=== PATIENT | male | born 1985 | race American Indian/Alaskan Native ===

== ENCOUNTER 2018-01-30 13:23 | Emergency (ER) | payer SELFPAY ==
[2018-01-30] MEDS ORDERED: PEPCID IV ONE (13:44)
[2018-01-30] MEDS ORDERED: BENADRYL IV ONE ×2 (13:44→20:55)
[2018-01-30] MEDS ORDERED: SOLU-Medrol ONE (13:50)
[2018-01-30] MEDS ORDERED: SOLU-Medrol IV ONE (16:17)
--- NOTE | 2018-01-30 18:27 | Emergency Department Report ---
ED General Adult HPI - General Chief complaint: Allergic Reaction Stated complaint: ALLERGIC REACTION Time Seen by Provider: 01/30/18 18:26 Source: patient, RN notes reviewed Mode of arrival: Ambulatory Limitations: No Limitations - History of Present Illness Initial comments: This is a 32-year-old male who is not known to this provider previously. He does not have a local primary care doctor and he denies chronic medical conditions. He presents to the ER with unprovoked nontraumatic swelling of the tongue. It is constant, does not radiate anywhere, does not appear to have exacerbating or relieving factors. He denies other complaints. He indicates no obvious inciting factors. patient was given Pepcid, Benadryl, Solu-Medrol which somewhat improved his symptoms, otherwise no changes. -: Sudden Location: mouth (tongue) Radiation: non-radiation Consistency: constant Improves with: medication Worsens with: none Associated Symptoms: denies other symptoms - Related Data Allergies Allergy/AdvReac Type Severity Reaction Status Date / Time No Known Allergies Allergy Unverified 01/30/18 13:40 ED Review of Systems ROS: Stated complaint: ALLERGIC REACTION Other details as noted in HPI Comment: All other systems reviewed and negative ED Past Medical Hx - Past Medical History Previous Medical History?: No - Surgical History Past Surgical History?: No - Social History Smoking Status: Current Every Day Smoker Substance Use Type: Alcohol ED Physical Exam - General Limitations: No Limitations General appearance: alert, in no apparent distress - Head Head exam: Present: atraumatic, normocephalic - Eye Eye exam: Present: normal appearance, EOMI - ENT ENT exam: Present: normal orophraynx, mucous membranes moist, normal external ear exam, other (patient has a large and swollen tongue. However he is speaking in full sentences, protecting his airway, and there is no stridor or dysphonia). Absent: normal exam - Neck Neck exam: Present: normal inspection, full ROM. Absent: tenderness - Respiratory Respiratory exam: Present: normal lung sounds bilaterally. Absent: respiratory distress - Cardiovascular Cardiovascular Exam: Present: regular rate, normal rhythm, normal heart sounds. Absent: bradycardia, tachycardia, irregular rhythm, systolic murmur, diastolic murmur, rubs, gallop - GI/Abdominal GI/Abdominal exam: Present: soft. Absent: distended, tenderness, guarding, rebound, rigid, pulsatile mass - Rectal Rectal exam: Present: deferred - Extremities Exam Extremities exam: Present: normal inspection, full ROM, other (2+ pulses noted in the bilateral upper, lower extremities. Compartments soft. No long bony tenderness. The pelvis is stable.). Absent: calf tenderness - Back Exam Back exam: Present: normal inspection, full ROM. Absent: tenderness, CVA tenderness (R), muscle spasm, paraspinal tenderness, vertebral tenderness - Neurological Exam Neurological exam: Present: alert, oriented X3, CN II-XII intact, normal gait, other (Extraocular movements intact. Tongue midline. No facial droop. Facial sensation intact to light touch in the V1, V2, V3 distribution bilaterally. 5 and 5 strength in 4 extremities.. Sensation is intact to light touch in 4 extremities.). Absent: motor sensory deficit - Psychiatric Psychiatric exam: Present: normal affect, normal mood - Skin Skin exam: Present: warm, dry, intact, normal color. 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 He is afebrile with reassuring vital signs, endorses no obvious exacerbating or inciting factors. He is treated empirically. He has been observed in the ER for a few hours. He is not clinically decompensated and his swelling of the tongue is improved when compared to my initial, prior evaluation.. However, he still has impressive swelling of the tongue. He will be admitted to the hospital for airway observation. The Hospital physician, Dr. Huynh accepted the patient to his service. Critical care attestation.: If time is entered above; I have spent that time in minutes in the direct care of this critically ill patient, excluding procedure time. ED Disposition Clinical Impression: Idiopathic angioedema Qualifiers: Encounter type: initial encounter Qualified Code(s): T78.3XXA - Angioneurotic edema, initial encounter Disposition: OP ADMIT IP TO THIS HOSP Is pt being admited?: Yes Condition: Good Referrals: PRIMARY CARE,MD [Primary Care Provider] - 3-5 Days
--- NOTE | 2018-01-30 19:29 | Consultation ---
History of Present Illness - Reason for Consult Consult date: 01/30/18 allergic reac Requesting physician: ARACELY HUDSON - History of Present Illness 32 YO Male with Nicotine Dependence present to ED for evaluation of tongue swelling, Pt states that he awoke with symptoms and presents to ED for evaluation. Pt seen and evaluated and treated with IV steroid therapy with improvement in symptoms. Pt medically optimized, and back to usual state of health. Pt denies drooling or shortness of breath. Pt tolerating solid and liquid diet without difficulty. Pt discharged home and instructed to f/u pcp 3- 5 days as well as Assistant Center Manager prn for allergy testing. Past History Past Medical History: No medical history, other (reviewed) Past Surgical History: No surgical history, Other (reviewed) Social history: , lives with family, smoking Family history: no significant family history (reviewed) Medications and Allergies Allergies Allergy/AdvReac Type Severity Reaction Status Date / Time No Known Allergies Allergy Unverified 01/30/18 13:40 Home Medications Medication Instructions Recorded Confirmed Last Taken Type EPINEPHrine [Epipen 2-Christian] 0.3 mg IJ ONCE PRN #1 auto.injct 01/30/18 Unknown Rx Prednisone [predniSONE 10 mg 10 mg PO .TAPER #1 tab.ds.pk 01/30/18 Unknown Rx (6-Day Pack, 21 Tabs)] Review of Systems Constitutional: no weight loss, no weight gain, no fever, no chills Ears, nose, mouth and throat: swelling in mouth, no ear pain, no ear discharge, no tinnitis, no decreased hearing, no nose pain, no sinus pressure, no dental pain, no mouth pain, no dysphagia, no hoarseness, no sore throat Cardiovascular: no chest pain, no orthopnea, no palpitations, no rapid/ irregular heart beat, no edema, no syncope, no lightheadedness Respiratory: no cough, no cough with sputum, no excessive sputum, no hemoptysis , no shortness of breath Gastrointestinal: no abdominal pain, no nausea, no vomiting, no diarrhea, no constipation, no change in bowel habits, no hematemesis Genitourinary Male: no dysuria, no hematuria, no flank pain, no discharge, no urinary frequency, no urinary hesitancy, no nocturia Rectal: no pain, no incontinence, no bleeding, no itching, no hemorrhoids Musculoskeletal: no neck stiffness, no neck pain, no shooting arm pain, no arm numbness/tingling, no low back pain, no shooting leg pain, no leg numbness/ tingling Integumentary: no rash, no pruritis, no redness, no sores, no wounds, no jaundice, no boils Neurological: no head injury, no transient paralysis, no paralysis, no weakness , no parathesias, no numbness, no tingling, no seizures, no syncope Psychiatric: no anxiety, no memory loss, no change in sleep habits, no sleep disturbances, no insomnia, no hypersomnia, no change in appetite, no change in libido, no suicidal ideation Endocrine: no cold intolerance, no heat intolerance, no polyphagia, no excessive thirst, no polydipsia, no polyuria, no nocturia Hematologic/Lymphatic: no easy bruising, no easy bleeding, no lymphadenopathy, no lymphedema Allergic/Immunologic: no urticaria, no allergic rhinitis, no wheezing, no persistent infections, no anaphylaxis, no angioedema Exam - Constitutional Vitals: Temp Pulse Resp BP Pulse Ox 98.8 F 94 H 20 119/83 98 01/30/18 13:37 01/30/18 13:37 01/30/18 13:37 01/30/18 13:37 01/30/18 13:37 General appearance: Present: no acute distress, well-nourished - EENT Eyes: Present: PERRL ENT: hearing intact, clear oral mucosa, other (tongue swelling, ) - Neck Neck: Present: supple, normal ROM - Respiratory Respiratory effort: normal Respiratory: bilateral: CTA - Cardiovascular Heart Sounds: Present: S1 & S2. Absent: rub, click - Extremities Extremities: pulses symmetrical, No edema Peripheral Pulses: within normal limits - Abdominal General gastrointestinal: Present: soft, non-tender, non-distended, normal bowel sounds Male genitourinary: Present: normal - Integumentary Integumentary: Present: clear, warm, dry - Musculoskeletal Musculoskeletal: gait normal, strength equal bilaterally - Psychiatric Psychiatric: appropriate mood/affect, intact judgment & insight - Neurologic Neurologic: CNII-XII intact, moves all extremities Assessment and Plan - Patient Problems (1) Allergic reaction Current Visit: Yes Status: Acute Qualifiers: Encounter type: initial encounter Qualified Code(s): T78.40XA - Allergy, unspecified, initial encounter Plan to address problem: Pt medically optimized, discharge home with epi pen, steroid taper, f/u pcp 1wk , Allergy medicine for allergy testing PRN.
[2018-01-30 20:00] VITALS: BP 110/69
[2018-01-30 20:07] LABS: Hematocrit 45.9 % (35.5-45.6); Hemoglobin 15.8 gm/dl (11.8-15.2); Mean Corpuscular HGB Conc 35 % (32-34); Mean Corpuscular Hemoglobin 33 pg (28-32); Mean Corpuscular Volume 95 fl (84-94); Platelet Count 284 K/mm3 (140-440); Red Blood Count 4.85 M/mm3 (3.65-5.03); Red Cell Distribution Width 12.3 % (13.2-15.2)
[2018-01-30 20:17] LABS: INR 0.96 (0.87-1.13)
[2018-01-30 20:19] LABS: BUN/Creatinine Ratio 10; Blood Urea Nitrogen 10 mg/dL (9-20); Calcium 9.7 mg/dL (8.4-10.2); Hemolysis Index 3
== END 2018-01-30 21:25 | disposition admitted as inpatient to this hospital (09) ==
LOC: ED 13:23
DX: T78.3XXA Angioneurotic edema, initial encounter (principal); F17.200 Nicotine dependence, unspecified, uncomplicated; X58.XXXA Exposure to other specified factors, initial encounter
CPT/HCPCS: 36415; 80048; 85027; 85610; 96374; 96375; 99284; J1200; J2930

== ENCOUNTER 2018-02-13 14:39 | Inpatient (IN) | payer OTHER ==
[2018-02-13] MEDS ORDERED: NACL 0.9% 1000 ML 1,000 ML IV ONE (14:47)
[2018-02-13] MEDS ORDERED: PEPCID IV ONE ×2 (14:48→14:49)
[2018-02-13] MEDS ORDERED: SOLU-Medrol IV ONE (14:48)
[2018-02-13] MEDS ORDERED: BENADRYL IV ONE (14:48)
[2018-02-13] MEDS ORDERED: SOLU-Medrol ONE (14:49)
[2018-02-13] MEDS ORDERED: BENADRYL ONE (14:52)
--- NOTE | 2018-02-13 14:54 | Emergency Department Report ---
ED Allergic Reaction HPI - General Chief complaint: Allergic Reaction Stated complaint: ALLERGIC REACTION Time Seen by Provider: 02/13/18 14:46 Source: patient Mode of arrival: Ambulatory Limitations: No Limitations - History of Present Illness Initial Comments: Patient is 32 years old male with history of idiopathic angioedema. Patient presented to the ER with upper and lower lips swelling that is started this morning patient stated that he woke up with the symptoms he went to [facility] ER and did give him a shot and they discharged him home. Patient stated that his symptoms are getting worse. Patient denied any tongue swelling, difficulty breathing or difficulty swallowing. No skin rash or itching. Patient immediately placed on a cardiac nurse specialist, IV access obtained, patient given IV Solu-Medrol, IV Benadryl and IV Pepcid. Complaint: allergic reaction, facial swelling -: This morning Symptoms: lip swelling Severity: moderate Treatment Prior to Arrival: steroids - Related Data Previous Rx's Medication Instructions Recorded Last Taken Type EPINEPHrine [Epipen 2-Christian] 0.3 mg IJ ONCE PRN #1 auto.injct 01/30/18 Unknown Rx Prednisone [predniSONE 10 mg 10 mg PO .TAPER #1 tab.ds.pk 01/30/18 Unknown Rx (6-Day Pack, 21 Tabs)] Allergies Allergy/AdvReac Type Severity Reaction Status Date / Time No Known Allergies Allergy Verified 01/30/18 19:49 ED Review of Systems ROS: Stated complaint: ALLERGIC REACTION Other details as noted in HPI Comment: All other systems reviewed and negative Constitutional: denies: chills, fever ENT: other (lips swelling) Respiratory: denies: cough, orthopnea, shortness of breath, SOB with exertion, SOB at rest, wheezing Cardiovascular: denies: chest pain, palpitations, dyspnea on exertion Gastrointestinal: denies: abdominal pain, nausea, vomiting, diarrhea, constipation, hematemesis Genitourinary: denies: urgency, dysuria Skin: denies: lesions, change in color, change in hair/nails, pruritus Neurological: denies: headache, weakness, numbness, paresthesias, confusion ED Past Medical Hx - Past Medical History Previous Medical History?: No - Surgical History Past Surgical History?: No - Social History Smoking Status: Current Every Day Smoker Substance Use Type: Alcohol - Medications Home Medications: Home Medications Medication Instructions Recorded Confirmed Last Taken Type EPINEPHrine [Epipen 2-Christian] 0.3 mg IJ ONCE PRN #1 auto.injct 01/30/18 02/14/18 Unknown Rx Prednisone [predniSONE 10 mg 10 mg PO .TAPER #1 tab.ds.pk 01/30/18 02/14/18 Unknown Rx (6-Day Pack, 21 Tabs)] ED Physical Exam - General Limitations: No Limitations General appearance: alert, in no apparent distress, anxious - Head Head exam: Present: atraumatic, normocephalic, normal inspection - Eye Eye exam: Present: normal appearance, PERRL Pupils: Present: normal accommodation - ENT ENT exam: Present: other (significant upper and lower lips is swelling. Tongue is normal size with no swelling. No airway compromise at this point.) - Neck Neck exam: Present: normal inspection, full ROM. Absent: tenderness, meningismus, lymphadenopathy, thyromegaly - Respiratory Respiratory exam: Present: normal lung sounds bilaterally - Cardiovascular Cardiovascular Exam: Present: regular rate, normal rhythm, normal heart sounds - GI/Abdominal GI/Abdominal exam: Present: soft, normal bowel sounds. Absent: distended, tenderness, guarding, rebound, rigid - Extremities Exam Extremities exam: Present: normal inspection, full ROM, normal capillary refill. Absent: pedal edema, calf tenderness - Back Exam Back exam: Present: normal inspection - Neurological Exam Neurological exam: Present: alert, oriented X3, CN II-XII intact, normal gait, reflexes normal - Skin Skin exam: Present: warm, intact, normal color ED Course Vital Signs 02/13/18 02/13/18 02/13/18 14:45 16:02 17:48 Temperature 99.2 F Pulse Rate 96 H 80 Respiratory 18 18 17 Rate Blood Pressure 122/86 O2 Sat by Pulse 99 100 Oximetry 02/13/18 02/13/18 02/13/18 18:00 18:15 18:30 Temperature Pulse Rate 104 H 85 82 Respiratory 18 13 17 Rate Blood Pressure 102/65 126/54 120/61 O2 Sat by Pulse Oximetry 02/13/18 02/13/18 02/13/18 18:45 19:00 19:15 Temperature Pulse Rate 82 80 75 Respiratory 15 15 13 Rate Blood Pressure 115/62 106/57 116/71 O2 Sat by Pulse Oximetry - Reevaluation(s) Reevaluation #1: 02/13/18 15:49 Patient is alert, oriented 2 in no acute distress. Patient denied any difficulty breathing or difficulty swallowing. Patient still have a significantly swollen lips. ED Medical Decision Making - Lab Data Result diagrams: 02/13/18 16:10 02/13/18 16:10 - Medical Decision Making I discussed the patient with Dr. Hughes, he agreed to admit the patient to medical service. Critical Care Time: Yes Critical care time in (mins) excluding proc time.: 30 Critical care attestation.: If time is entered above; I have spent that time in minutes in the direct care of this critically ill patient, excluding procedure time. ED Disposition Clinical Impression: Idiopathic angioedema, Allergic reaction Disposition: OP ADMIT IP TO THIS HOSP Is pt being admited?: Yes Condition: Stable
[2018-02-13 16:50] LABS: Hematocrit 43.5 % (35.5-45.6); Mean Corpuscular HGB Conc 35 % (32-34); Mean Corpuscular Hemoglobin 33 pg (28-32); Mean Corpuscular Volume 95 fl (84-94); Platelet Count 307 K/mm3 (140-440); Red Blood Count 4.57 M/mm3 (3.65-5.03); Red Cell Distribution Width 12.2 % (13.2-15.2)
[2018-02-13 17:16] LABS: BUN/Creatinine Ratio 9; Blood Urea Nitrogen 7 mg/dL (9-20); Calcium 9.1 mg/dL (8.4-10.2); Hemolysis Index 13
[2018-02-13 17:49] LABS: Basophils % (Manual) 0 % (0.0-1.8); Eosinophils % (Manual) 0 % (0.0-4.3); RBC Morphology Normal; Total Cells Counted 100
[2018-02-14] MEDS ORDERED: TYLENOL PO PRN (01:07)
[2018-02-14] MEDS ORDERED: ZOFRAN IV PRN (01:07)
[2018-02-14] MEDS ORDERED: PERCOCET 5/325 PO PRN (01:07)
[2018-02-14] MEDS ORDERED: SODIUM CHLORIDE FLUSH SYRINGE 10 ML IV PRN (01:07)
[2018-02-14] MEDS ORDERED: MORPHINE IV PRN ×2 (01:07)
--- NOTE | 2018-02-14 01:07 | History and Physical Report ---
History of Present Illness Date of examination: 02/13/18 Date of admission: 02/13/18 16:01 Chief complaint: CC Swelling of both lips since AM History of present illness: History of Present Illness: 32 years old Black male with history of idiopathic angioedema presented to the ER with upper and lower lips swelling that started this morning .Patient stated that he woke up with the symptoms he went to [facility] ER and they give him a shot and discharged him home. Patient stated that his symptoms are getting worse. Patient denied any tongue swelling, difficulty breathing or difficulty swallowing. No skin rash or itching. Patient immediately placed on a compliance monitor, IV access obtained, patient given IV Solu-Medrol, IV Benadryl and IV Pepcid.Patient not on THIERRY inhibitors. Past Medical History Previous Medical History?: No Surgical History Past Surgical History?: No Social History Smoking Status: Current Every Day Smoker Substance Use Type: Alcohol Family History Htn - Medications Home Medications: Home Medications Medication Instructions Recorded Confirmed Last Taken Type EPINEPHrine [Epipen 2-Christian] 0.3 mg IJ ONCE PRN #1 auto.injct 01/30/18 02/14/18 Unknown Rx Prednisone [predniSONE 10 mg 10 mg PO .TAPER #1 tab.ds.pk 01/30/18 02/14/18 Unknown Rx (6-Day Pack, 21 Tabs)] Review of Systems ROS: Stated complaint: ALLERGIC REACTION Other details as noted in HPI Comment: All other systems reviewed and negative Constitutional: denies: chills, fever ENT: other (lips swelling) Respiratory: denies: cough, orthopnea, shortness of breath, SOB with exertion, SOB at rest, wheezing Cardiovascular: denies: chest pain, palpitations, dyspnea on exertion Gastrointestinal: denies: abdominal pain, nausea, vomiting, diarrhea, constipation, hematemesis Genitourinary: denies: urgency, dysuria Skin: denies: lesions, change in color, change in hair/nails, pruritus Neurological: denies: headache, weakness, numbness, paresthesias, confusion 14 point review of systems done-Otherwise negative Medications and Allergies Allergies Allergy/AdvReac Type Severity Reaction Status Date / Time No Known Allergies Allergy Verified 01/30/18 19:49 Home Medications Medication Instructions Recorded Confirmed Last Taken Type EPINEPHrine [Epipen 2-Christian] 0.3 mg IJ ONCE PRN #1 auto.injct 01/30/18 02/14/18 Unknown Rx Prednisone [predniSONE 10 mg 10 mg PO .TAPER #1 tab.ds.pk 01/30/18 02/14/18 Unknown Rx (6-Day Pack, 21 Tabs)] Exam - Constitutional Vitals: Temp Pulse Resp BP Pulse Ox 98.2 F 94 H 16 118/77 99 02/13/18 21:38 02/13/18 21:38 02/13/18 21:38 02/13/18 21:38 02/13/18 21:38 General appearance: Present: mild distress, well-nourished - EENT Eyes: Present: PERRL ENT: hearing intact, clear oral mucosa, other (Both Lips are severely swollen, No airway compromis,No Tongue swelling.) - Neck Neck: Present: supple, normal ROM - Respiratory Respiratory effort: normal Respiratory: bilateral: CTA - Cardiovascular Heart Sounds: Present: S1 & S2. Absent: rub, click - Extremities Extremities: pulses symmetrical, No edema Peripheral Pulses: within normal limits - Abdominal General gastrointestinal: Present: soft, non-tender, non-distended, normal bowel sounds Male genitourinary: Present: normal - Integumentary Integumentary: Present: clear, warm, dry - Musculoskeletal Musculoskeletal: gait normal, strength equal bilaterally - Psychiatric Psychiatric: appropriate mood/affect, intact judgment & insight - Neurologic Neurologic: CNII-XII intact, moves all extremities Results - Labs CBC & Chem 7: 02/13/18 16:10 02/13/18 16:10 Labs: Laboratory Last Values WBC 7.9 K/mm3 (4.5-11.0) 02/13/18 16:10 RBC 4.57 M/mm3 (3.65-5.03) 02/13/18 16:10 Hgb 15.0 gm/dl (11.8-15.2) 02/13/18 16:10 Hct 43.5 % (35.5-45.6) 02/13/18 16:10 MCV 95 fl (84-94) H 02/13/18 16:10 MCH 33 pg (28-32) H 02/13/18 16:10 MCHC 35 % (32-34) H 02/13/18 16:10 RDW 12.2 % (13.2-15.2) L 02/13/18 16:10 Plt Count 307 K/mm3 (140-440) 02/13/18 16:10 Add Manual Diff Complete 02/13/18 16:10 Total Counted 100 02/13/18 16:10 Seg Neutrophils % Director Of Digital Technology 02/13/18 16:10 Seg Neuts % (Manual) 95.0 % (40.0-70.0) H 02/13/18 16:10 Band Neutrophils % 0 % 02/13/18 16:10 Lymphocytes % (Manual) 3.0 % (13.4-35.0) L 02/13/18 16:10 Reactive Lymphs % (Man) 0 % 02/13/18 16:10 Monocytes % (Manual) 2.0 % (0.0-7.3) 02/13/18 16:10 Eosinophils % (Manual) 0 % (0.0-4.3) 02/13/18 16:10 Basophils % (Manual) 0 % (0.0-1.8) 02/13/18 16:10 Metamyelocytes % 0 % 02/13/18 16:10 Myelocytes % 0 % 02/13/18 16:10 Promyelocytes % 0 % 02/13/18 16:10 Blast Cells % 0 % 02/13/18 16:10 Nucleated RBC % Not Reportable 02/13/18 16:10 Seg Neutrophils # Man 7.5 K/mm3 (1.8-7.7) 02/13/18 16:10 Band Neutrophils # 0.0 K/mm3 02/13/18 16:10 Lymphocytes # (Manual) 0.2 K/mm3 (1.2-5.4) L 02/13/18 16:10 Abs React Lymphs (Man) 0.0 K/mm3 02/13/18 16:10 Monocytes # (Manual) 0.2 K/mm3 (0.0-0.8) 02/13/18 16:10 Eosinophils # (Manual) 0.0 K/mm3 (0.0-0.4) 02/13/18 16:10 Basophils # (Manual) 0.0 K/mm3 (0.0-0.1) 02/13/18 16:10 Metamyelocytes # 0.0 K/mm3 02/13/18 16:10 Myelocytes # 0.0 K/mm3 02/13/18 16:10 Promyelocytes # 0.0 K/mm3 02/13/18 16:10 Blast Cells # 0.0 K/mm3 02/13/18 16:10 WBC Morphology Not Reportable 02/13/18 16:10 Hypersegmented Neuts Not Reportable 02/13/18 16:10 Hyposegmented Neuts Not Reportable 02/13/18 16:10 Hypogranular Neuts Not Reportable 02/13/18 16:10 Smudge Cells Not Reportable 02/13/18 16:10 Toxic Granulation Not Reportable 02/13/18 16:10 Toxic Vacuolation Not Reportable 02/13/18 16:10 Dohle Bodies Not Reportable 02/13/18 16:10 Pelger-Huet Anomaly Not Reportable 02/13/18 16:10 Gilbert Rods Not Reportable 02/13/18 16:10 Platelet Estimate Not Reportable 02/13/18 16:10 Clumped Platelets Not Reportable 02/13/18 16:10 Plt Clumps, EDTA Not Reportable 02/13/18 16:10 Large Platelets Not Reportable 02/13/18 16:10 Giant Platelets Not Reportable 02/13/18 16:10 Platelet Satelliting Not Reportable 02/13/18 16:10 Plt Morphology Comment Not Reportable 02/13/18 16:10 RBC Morphology Normal 02/13/18 16:10 Dimorphic RBCs Not Reportable 02/13/18 16:10 Polychromasia Not Reportable 02/13/18 16:10 Hypochromasia Not Reportable 02/13/18 16:10 Poikilocytosis Not Reportable 02/13/18 16:10 Anisocytosis Not Reportable 02/13/18 16:10 Microcytosis Not Reportable 02/13/18 16:10 Macrocytosis Not Reportable 02/13/18 16:10 Spherocytes Not Reportable 02/13/18 16:10 Pappenheimer Bodies Not Reportable 02/13/18 16:10 Sickle Cells Not Reportable 02/13/18 16:10 Target Cells Not Reportable 02/13/18 16:10 Tear Drop Cells Not Reportable 02/13/18 16:10 Ovalocytes Not Reportable 02/13/18 16:10 Helmet Cells Not Reportable 02/13/18 16:10 [place] Bodies Not Reportable 02/13/18 16:10 [place] Rings Not Reportable 02/13/18 16:10 Closplint Cells Not Reportable 02/13/18 16:10 Bite Cells Not Reportable 02/13/18 16:10 Crenated Cell Not Reportable 02/13/18 16:10 Elliptocytes Not Reportable 02/13/18 16:10 Acanthocytes (Spur) Not Reportable 02/13/18 16:10 Rouleaux Not Reportable 02/13/18 16:10 Hemoglobin C Crystals Not Reportable 02/13/18 16:10 Schistocytes Not Reportable 02/13/18 16:10 Malaria parasites Not Reportable 02/13/18 16:10 Reagan Bodies Not Reportable 02/13/18 16:10 Hem Pathologist Commnt No 02/13/18 16:10 Sodium 140 mmol/L (137-145) 02/13/18 16:10 Potassium 4.8 mmol/L (3.6-5.0) 02/13/18 16:10 Chloride 103.8 mmol/L (98-107) 02/13/18 16:10 Carbon Dioxide 24 mmol/L (22-30) 02/13/18 16:10 Anion Gap 17 mmol/L 02/13/18 16:10 BUN 7 mg/dL (9-20) L 02/13/18 16:10 Creatinine 0.8 mg/dL (0.8-1.5) 02/13/18 16:10 Estimated GFR > 60 ml/min 02/13/18 16:10 BUN/Creatinine Ratio 9 % 02/13/18 16:10 Glucose 102 mg/dL (75-100) H 02/13/18 16:10 Calcium 9.1 mg/dL (8.4-10.2) 02/13/18 16:10 Short CBC 02/13/18 Range/Units 16:10 WBC 7.9 (4.5-11.0) K/mm3 Hgb 15.0 (11.8-15.2) gm/dl Hct 43.5 (35.5-45.6) % Plt Count 307 (140-440) K/mm3 BMP 02/13/18 16:10 Sodium 140 Potassium 4.8 Chloride 103.8 Carbon Dioxide 24 BUN 7 L Creatinine 0.8 Glucose 102 H Calcium 9.1 Assessment and Plan Advance Directives: Yes (Full code) VTE prophylaxis?: Chemical Plan of care discussed with patient/family: Yes - Patient Problems (1) Idiopathic angioedema Current Visit: Yes Status: Acute Qualifiers: Encounter type: initial encounter Qualified Code(s): T78.3XXA - Angioneurotic edema, initial encounter Plan to address problem: Severe Angioedema IV Pepcid IV Benadryl and IV solumedrol F/u with guest experience specialist as outpatient. To rule out complement def (2) DVT prophylaxis Current Visit: Yes Status: Acute Plan to address problem: on Lovenox
[2018-02-14] MEDS ORDERED: NACL 0.9% 1000 ML 1,000 ML IV SCH (02:00)
[2018-02-14] MEDS: SOLU-Medrol IV SCH ×2 (02:36→10:40)
[2018-02-14] MEDS: PEPCID IV SCH ×2 (03:52→10:40)
[2018-02-14 06:31] VITALS: BP 123/81
[2018-02-14] MEDS ORDERED: SODIUM CHLORIDE FLUSH SYRINGE 10 ML IV SCH (10:00)
--- NOTE | 2018-02-14 11:25 | Discharge Summary ---
Providers - Providers Date of Admission: 02/13/18 16:01 Date of discharge: 02/14/18 Attending physician: INGE MAYS None Primary care physician: ROPE MAKER Hospitalization Condition: Stable Hospital course: - Patient Problems (1) Idiopathic angioedema Current Visit: Yes Status: Acute Qualifiers: Encounter type: initial encounter Qualified Code(s): T78.3XXA - Angioneurotic edema, initial encounter Plan to address problem: Severe Angioedema IV Pepcid IV Benadryl and IV solumedrol ---Lip swelling resolved. F/u with adolescent specialist as outpatient. To rule out complement def Will discharge on Prednisone and Hydroxizine and Pepcid Disposition: DC- TO HOME OR SELFCARE Core Measure Documentation - Palliative Care Palliative Care/ Comfort Measures: Not Applicable - Core Measures Any of the following diagnoses?: none Exam - Constitutional Vitals: Temp Pulse Resp BP Pulse Ox 98.4 F 81 16 123/81 99 02/14/18 05:34 02/14/18 05:34 02/14/18 05:34 02/14/18 05:34 02/14/18 05:34 Plan Follow up with: PRIMARY CAREMD [Primary Care Provider] - 3-5 Days
== END 2018-02-14 14:00 | disposition home or self-care (01) | DRG 916 ==
LOC: ED 14:39 → 3A 16:01
PROVIDERS: ADMIT Internal Medicine; ATTEND Internal Medicine
DX: T78.3XXA Angioneurotic edema, initial encounter (principal); T78.40XA Allergy, unspecified, initial encounter; F17.200 Nicotine dependence, unspecified, uncomplicated; T78.49XA Other allergy, initial encounter; X58.XXXA Exposure to other specified factors, initial encounter; Z82.49 Family history of ischemic heart disease and other diseases of the circulatory system
CPT/HCPCS: 36415; 80048; 83036; 85007; 85025; 96361; 96374; 96375; J1200; J2930; J7030